=== PATIENT | female | born 1945 | race Caucasian/White ===

== ENCOUNTER → 2016-09-29 | Outpatient (CLI) | payer MEDICARE ==
[~2016-09-29] MED LIST: ASPI-586 PO; ATOR80TA PO; CPR500T PO; ESTR1PAT34 TD; FLAX100011 PO; LEVO50TA PO; LISI5TAB14 PO; LSNP20T PO; METO-272 PO; METR500T17 PO; MTP50T PO; MULT1TAB PO; NILO200C PO; PROM25TA14 PO; QTP25T PO; ROSU40TA PO
[2016-09-29 08:53] LABS: BASOPHILS % (AUTO) 0 % (0-2); EOSINOPHILS # (AUTO) 0.1 10^3uL; EOSINOPHILS % (AUTO) 1 % (0-4); MEAN CORPUSCULAR HEMOGLOBIN 29.9 PG (26.0-34.0); MEAN CORPUSCULAR VOLUME 96 FL (80-100); MEAN PLATELET VOLUME 12.2 FL (6.0-9.5); MONOCYTES # (AUTO) 1.2 X10^3; MONOCYTES % (AUTO) 9 % (3-11); NEUTROPHILS # (AUTO) 8.1 X10^3; NEUTROPHILS % (AUTO) 65 % (51-67); PLATELET COUNT 141 10^3uL (150-450)
[2016-09-29 09:06] LABS: MEAN CORPUSCULAR HGB CONC 31.3 g/dL (31.0-37.0)
[2016-09-29 13:06] LABS: BCR-ABL Specimen Type 1 LAV
== END ==
LOC: LAB 08:42
PROVIDERS: ATTEND Internal Medicine Hematology & Oncology
DX: C92.11 Chronic myeloid leukemia, BCR/ABL-positive, in remission (principal); N18.9 Chronic kidney disease, unspecified
CPT/HCPCS: 36415; 85025